=== PATIENT | female | born 1990 | race Caucasian/White ===

== ENCOUNTER 2016-09-10 18:57 | Emergency (ER) | payer BC, OTHER ==
[~2016-09-10] VITALS: Ht 152.4 cm; Wt 157.2 kg
[~2016-09-10 18:57] MED LIST: ABL10 PO; BUPRTAB51 PO; CPR500 PO; FLUO20CA35 PO; NITR-5 PO; PROM25TA PO
[2016-09-10 19:02] VITALS: TEMP 36.7; Ht 152.4 cm; Wt 157.2 kg
--- NOTE | 2016-09-10 19:37 | EMERGENCY ROOM VISIT NOTE ---
History Report prepared by Katie: Janak Gonzalez Under the Supervision of: Dr. Jamie Corley D.O. First contact with patient: 19:15 Chief Complaint: MENTAL HEALTH EVALUATION Stated Complaint: SCHIZOPHRENIA (HALLUCINATIONS, ETC) History of Present Illness The patient is a 25 year old female who presents to the Emergency Room for a mental health evaluation for constant schizophrenia for the past few weeks. The patient states that she is currently hearing voices, though she does not have any suicidal ideations, and she is having trouble coping with everything. The patient states that she just moved from an inpatient psychiatric facility in [place], and she is currently living with a roommate who also has mental health issues. The patient states that she was being treated for schizoaffective, bipolar type, borderline personality, ADHD, and PTSD. The patient states that she is currently on a lot of medication, and she takes them every day, and they have not changed recently. She states that she was last admitted to a hospital two years ago, and she currently does not have anyone to follow up with. She states that her last period was last August due to some medication issues. She states that she drank alcohol yesterday, though not very much. Source of History: patient Onset: few weeks ago Position: other (global) Quality: other (schizophrenia) Timing: constant Review of Systems See HPI for pertinent positives & negatives. A total of 10 systems reviewed and were otherwise negative. Past Medical & Surgical Medical Problems: (1) ADHD (2) PTSD (post-traumatic stress disorder) (3) Schizoaffective disorder, bipolar type Social History Smoking Status: Never Smoker Housing Status: lives with roommate Occupation Status: student Current/Historical Medications Scheduled Buspirone Hcl (Buspar), 20 MG PO QAM Buspirone Hcl (Buspar), 30 MG PO QPM Fluoxetine (Prozac), 40 MG PO DAILY Lamotrigine (Lamictal), 300 MG PO BID Lisinopril/Hctz (Zestoretic 20MG/12.5MG), 1 TAB PO DAILY Metoprolol Tartrate (Lopressor) (Lopressor), 12.5 MG PO BID Scheduled PRN Lorazepam (Ativan), 1 MG PO BID PRN for Anxiety/Agitation Allergies Uncoded Allergies: ARTIFICAL "SWEETENERS" (Allergy, Severe, UNKNOWN, 09/10/16) Physical Exam Vital Signs Date Time Temp Pulse Resp B/P (MAP) Pulse Ox O2 Delivery O2 Flow Rate FiO2 09/10/16 22:34 91 18 117/72 94 09/10/16 19:02 36.7 96 16 136/85 96 Room Air Physical Exam GENERAL: Patient is awake, alert, and in no acute distress. Patient is resting comfortably and showing no signs of anxiety EYES: The conjunctivae are clear. The pupils are round and reactive. EARS, NOSE, MOUTH AND THROAT: The nose is without any evidence of any deformity. Mucous membranes are moist tongue is midline NECK: The neck is nontender and supple. RESPIRATORY: Normal respiratory effort is noted there is no evidence of wheezing rhonchi or rales CARDIOVASCULAR: Regular rate and rhythm noted there no murmurs rubs or gallops normal S1 normal S2 GASTROINTESTINAL: The abdomen is soft. Bowel sounds are present in all quadrants. Abdomen is nontender MUSCULOSKELETAL/EXTREMITIES: There is no evidence of gross deformity full range of motion is noted in the hips and shoulders SKIN: There is no obvious evidence of any rash. There are no petechiae, pallor or cyanosis noted. NEUROLOGIC: Patient is awake alert and oriented x3 strength is symmetric patellar reflexes are 2+ bilaterally PSYCH: Awake, alert, non-anxious appearing. Patient makes good eye contact. Denying any suicidal or homicidal ideations. Medical Decision & Procedures Laboratory Results 09/10/16 19:51 Red Blood Count 4.77, Mean Corpuscular Volume 89.5, Mean Corpuscular Hemoglobin 31.2, Mean Corpuscular Hemoglobin Concent 34.9, Mean Platelet Volume 9.7, Neutrophils (%) (Auto) 62.7, Lymphocytes (%) (Auto) 29.0, Monocytes (%) (Auto) 7.1, Eosinophils (%) (Auto) 0.9, Basophils (%) (Auto) 0.1, Neutrophils # (Auto) 7.04, Lymphocytes # (Auto) 3.26, Monocytes # (Auto) 0.80, Eosinophils # (Auto) 0.10, Basophils # (Auto) 0.01 09/10/16 19:51 Test 09/10/16 19:45 09/10/16 19:51 Urine Color DK YELLOW Urine Appearance CLEAR (CLEAR) Urine pH 7.0 (4.5-7.5) Urine Specific [place] 1.026 (1.000-1.030) Urine Protein NEG (NEG) Urine Glucose (UA) NEG (NEG) Urine Ketones NEG (NEG) Urine Occult Blood NEG (NEG) Urine Nitrite NEG (NEG) Urine Bilirubin NEG (NEG) Urine Urobilinogen NEG (NEG) Urine Leukocyte Esterase NEG (NEG) Urine Test NEG (NEG) Urine Opiates Screen NEG (NEG) Urine Methadone, Qualitative NEG (NEG) Urine Barbiturates NEG (NEG) Urine Phencyclidine (PCP) Level NEG (NEG) Ur Amphetamine/Methamphetamine NEG (NEG) MDMA (Ecstasy) Screen NEG (NEG) Urine Benzodiazepines Screen NEG (NEG) Urine Cocaine Metabolite NEG (NEG) Urine Marijuana (THC) NEG (NEG) White Blood Count 11.23 K/uL (4.8-10.8) Red Blood Count 4.77 M/uL (4.2-5.4) Hemoglobin 14.9 g/dL (12.0-16.0) Hematocrit 42.7 % (37-47) Mean Corpuscular Volume 89.5 fL (80-100) Mean Corpuscular Hemoglobin 31.2 pg (25-34) Mean Corpuscular Hemoglobin Concent 34.9 g/dl (32-36) Platelet Count 330 K/uL (130-400) Mean Platelet Volume 9.7 fL (7.4-10.4) Neutrophils (%) (Auto) 62.7 % Lymphocytes (%) (Auto) 29.0 % Monocytes (%) (Auto) 7.1 % Eosinophils (%) (Auto) 0.9 % Basophils (%) (Auto) 0.1 % Neutrophils # (Auto) 7.04 K/uL (1.4-6.5) Lymphocytes # (Auto) 3.26 K/uL (1.2-3.4) Monocytes # (Auto) 0.80 K/uL (0.11-0.59) Eosinophils # (Auto) 0.10 K/uL (0-0.5) Basophils # (Auto) 0.01 K/uL (0-0.2) RDW Standard Deviation 41.3 fL (36.4-46.3) RDW Coefficient of Variation 12.8 % (11.5-14.5) Immature Granulocyte % (Auto) 0.2 % Immature Granulocyte # (Auto) 0.02 K/uL (0.00-0.02) Anion Gap 10.0 mmol/L (3-11) Est Creatinine Clear Calc Drug Dose 122.8 ml/min Estimated GFR () 91.6 Estimated GFR (Non- 79.1 BUN/Creatinine Ratio 13.1 (10-20) Calcium Level 9.4 mg/dl (8.5-10.1) Total Bilirubin 0.8 mg/dl (0.2-1) Direct Bilirubin 0.1 mg/dl (0-0.2) Aspartate Amino Transf (AST/SGOT) 32 U/L (15-37) Alanine Aminotransferase (ALT/SGPT) 57 U/L (12-78) Alkaline Phosphatase 115 U/L (45-117) Total Protein 8.5 gm/dl (6.4-8.2) Albumin 4.0 gm/dl (3.4-5.0) Thyroid Stimulating Hormone (TSH) 2.310 uIu/ml (0.300-4.500) Ethyl Alcohol mg/dL < 3.0 mg/dl (0-3) Laboratory results per my review. ED Course 1919: The patient was evaluated in room A5. A complete history and physical examination were performed. 2209: Upon reevaluation, the patient is resting. I discussed the results and treatment plan with her. She verbalized agreement of the treatment plan. She was discharged home. Medical Decision Differential diagnosis: Etiologies such as mood disorder, infection, hypoglycemia, electrolyte abnormalities, cardiac sources, intracerebral event, toxicologic, neurologic, as well as others were entertained. Nursing notes reviewed. The patient is a 25-year-old female who presented to the emergency department for evaluation of mental health problems. The patient recently moved to our area and was very concerned because she's been having trouble with her mental health issues. At this time she does not require involuntary admission. She is not homicidal or suicidal. I discussed her case with the emergency department mental health supervisor case loading. She was evaluated and had outpatient follow-up arranged. The patient was encouraged to continue all medications as prescribed. She was also encouraged to call crisis or return to the emergency department immediately if symptoms change worsen or the need arises. Medication Reconcilliation Current Medication List: was personally reviewed by me Blood Pressure Screening Patient's blood pressure: Normal blood pressure Impression Primary Impression: Schizoaffective disorder, bipolar type Scribe Attestation The scribe's documentation has been prepared under my direction and personally reviewed by me in its entirety. I confirm that the note above accurately reflects all work, treatment, procedures, and medical decision making performed by me. Departure Information Dispostion Home / Self-Care Referrals No Doctor, Assigned (PCP) Forms HOME CARE DOCUMENTATION FORM, IMPORTANT VISIT INFORMATION Patient Instructions My [facility], Schizoaffective Disorder Additional Instructions Continue all medications as prescribed. Follow-up with your therapist as scheduled. Call crisis or return to the emergency department immediately if symptoms change worsen or the need arises.
[2016-09-10] MEDS ORDERED: METO25TA56 PO (19:49)
[2016-09-10] MEDS ORDERED: ATV/1 PO (19:49)
[2016-09-10] MEDS ORDERED: BUSP15TA70 PO ×2 (19:49)
[2016-09-10] MEDS ORDERED: LISI-787 PO (19:49)
[2016-09-10] MEDS ORDERED: FLUO40CA8 PO (19:49)
[2016-09-10] MEDS ORDERED: LAMO200T38 PO (19:49)
[2016-09-10 20:21] LABS: BASO % 0.1 %; BASO ABS # 0.01 K/uL (0-0.2); COMPLETE YES; EOS % 0.9 %; HEMATOCRIT 42.7 % (37-47); IG% 0.2 %; LYMPH ABS # 3.26 K/uL (1.2-3.4); MEAN CELL VOLUME 89.5 fL (80-100); MEAN CORPUSCULAR HEMOGLOBIN 31.2 pg (25-34); MEAN CORPUSCULAR HGB CONC 34.9 g/dl (32-36); MEAN PLATELET VOLUME 9.7 fL (7.4-10.4); MONO % 7.1 %; NEUT % 62.7 %; PLATELET COUNT 330 K/uL (130-400); RED BLOOD COUNT 4.77 M/uL (4.2-5.4); WHITE BLOOD COUNT 11.23 K/uL (4.8-10.8)
[2016-09-10 20:36] LABS: URINE APPEARANCE CLEAR (CLEAR); URINE BILIRUBIN NEG (NEG); URINE COLOR DK YELLOW; URINE NITRITE NEG (NEG); URINE SPECIFIC GRAVITY 1.026 (1.000-1.030); UROBILINOGEN NEG (NEG)
[2016-09-10 20:41] LABS: MANUAL MICROSCOPIC REQUIRED? NO; REVIEW REQ? NO
[2016-09-10 20:42] LABS: BUN/CREATININE RATIO 13.1 (10-20); CALCIUM 9.4 mg/dl (8.5-10.1); CREATININE 0.98 mg/dl (0.60-1.20); POTASSIUM 4.1 mmol/L (3.5-5.1)
[2016-09-10 20:52] LABS: THYROID STIMULATING HORMONE 2.31 uIu/ml (0.300-4.500)
[2016-09-10 21:14] LABS: BENZODIAZEPINE, URINE NEG (NEG); COCAINE,URINE NEG (NEG); PHENCYCLIDINE, URINE NEG (NEG)
[2016-09-10 22:34] VITALS: BP 117/72; PULSE 91; O2SAT 94
== END 2016-09-10 22:36 | disposition home or self-care (01) ==
LOC: C.EDB 18:59 → C.EDA 22:36
DX: F25.0 Schizoaffective disorder, bipolar type (principal); F90.9 Attention-deficit hyperactivity disorder, unspecified type; Z79.899 Other long term (current) drug therapy